=== PATIENT | male | born 1980 | race Caucasian/White ===

== ENCOUNTER 2020-03-24 06:38 | Day surgery (SDC) | payer BC ==
[~2020-03-24 06:38] MED LIST: Lactated Ringers 1,000 ML IV SCH; Sodium Chloride 0.9% 10 ML SDV IV PRN; Sodium Chloride 0.9% 10 ML Syringe FLUSH PRN; Sodium Chloride 0.9% 2.5 ML Syringe FLUSH PRN; ceFAZolin 2 GM in Premix Bag 1 BAG IV ONE
[2020-03-24] MEDS ORDERED: fentaNYL 250 MCG/5 ML SDV ONE (06:53)
[2020-03-24] MEDS ORDERED: Midazolam 1 MG/ML 2 ML SDV ONE (06:53)
[2020-03-24] MEDS ORDERED: Propofol 200 MG/20 ML SDV ONE (06:53)
[2020-03-24] MEDS ORDERED: Dexamethasone 4 MG/ML 5 ML MDV ONE (06:55)
[2020-03-24] MEDS ORDERED: Ondansetron 4 MG/2 ML SDV ONE (06:55)
[2020-03-24] MEDS ORDERED: ceFAZolin/Dextrose,Iso-Osmotic 2 GM/50 ML Duplex Bag IV ONE (07:01)
[2020-03-24] MEDS ORDERED: Bupivacaine 0.5% 30 ML SDV ONE (07:05)
--- NOTE | 2020-03-24 07:07 | PCM.PREANE ---
Preanesthetic Assessment - Anesthesia/Transfusion/Family Hx Anesthesia History: Prior Anesthesia Without Reaction Family History of Anesthesia Reaction: No Transfusion History: No Prior Transfusion(s) - Review of Systems General: No Symptoms Pulmonary: No Symptoms Cardiovascular: No Symptoms Gastrointestinal: No Symptoms Neurological: No Symptoms Other: Reports: None - Physical Assessment NPO Status Date: 03/23/20 Height: 5 ft 11 in Weight: 95.254 kg ASA Class: 1 Mental Status: Alert & Oriented x3 Airway Class: Mallampati = 2 Dentition: Reports: Normal Dentition ROM/Head Extension: Full Lungs: Clear to Auscultation, Normal Respiratory Effort Cardiovascular: Regular Rate, Regular Rhythm - Allergies Allergies/Adverse Reactions: Allergies Allergy/AdvReac Type Severity Reaction Status Date / Time No Known Allergies Allergy Verified 03/18/20 09:56 - Acknowledgements Anesthesia Type Planned: General Anesthesia Pt an Appropriate Candidate for the Planned Anesthesia: Yes Alternatives and Risks of Anesthesia Discussed w Pt/Guardian: Yes Pt/Guardian Understands and Agrees with Anesthesia Plan: Yes PreAnesthesia Questionnaire HEENT History: Reports: None Cardiovascular History: Reports: None Respiratory History: Reports: None Gastrointestinal History: Reports: None Genitourinary History: Reports: None Musculoskeletal History: Reports: Other (See Below) Other Musculoskeletal History: occasional back pain Neurological History: Reports: None Psychiatric History: Reports: None Endocrine/Metabolic History: Reports: None Hematologic History: Reports: None Immunologic History: Reports: None Oncologic (Cancer) History: Reports: None Dermatologic History: Reports: None - Infectious Disease History Infectious Disease History: Reports: Chicken Pox Other Infectious Disease History: as a child - Past Surgical History Head Surgeries/Procedures: Reports: None HEENT Surgical History: Reports: None Cardiovascular Surgical History: Reports: None Respiratory Surgical History: Reports: None GI Surgical History: Reports: None Other Female Surgeries/Procedures: varicocele repair Male Surgical History: Reports: Other (See Below) Endocrine Surgical History: Reports: None Neurological Surgical History: Reports: None Musculoskeletal Surgical History: Reports: Arthroscopic Knee, Other (See Below) Other Musculoskeletal Surgeries/Procedures:: flower knee surgeries, 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 Oncologic Surgical History: Reports: None Dermatological Surgical History: Reports: None - SUBSTANCE USE Tobacco Use Status *Q: Never Tobacco User - HOME MEDS Home Medications: Home Meds Turmeric Root Extract [Turmeric] 3 tab PO DAILY 09/18/19 [History] - CURRENT (IN HOUSE) MEDS Current Meds: Current Medications Lactated Ringer's (Ringers, Lactated) 1,000 mls @ 100 mls/hr IV ASDIRECTED CALEB Sodium Chloride (Saline Flush) 10 ml FLUSH ASDIRECTED PRN PRN Reason: Keep Vein Open Sodium Chloride (Saline Flush) 2.5 ml FLUSH ASDIRECTED PRN PRN Reason: Keep Vein Open Sodium Chloride (Normal Saline) 10 ml IV ASDIRECTED PRN PRN Reason: IV Use Discontinued Medications Cefazolin Sodium/Dextrose (Ancef) Confirm Administered Dose 2 gm IV .STK-MED ONE Stop: 03/24/20 07:02 Dexamethasone (Dexamethasone) Confirm Administered Dose 20 mg .ROUTE .STK-MED ONE Stop: 03/24/20 06:56 Fentanyl (Sublimaze) Confirm Administered Dose 250 mcg .ROUTE .STK-MED ONE Stop: 03/24/20 06:54 Cefazolin Sodium/Dextrose 2 gm (/ Premix) 50 mls @ 100 mls/hr IV ONCALL ONE Stop: 03/24/20 00:30 Lidocaine HCl (Xylocaine-Mpf 1%) Confirm Administered Dose 5 ml .ROUTE .STK-MED ONE Stop: 03/24/20 06:56 Midazolam HCl (Versed 1 Mg/Ml) Confirm Administered Dose 2 mg .ROUTE .STK-MED ONE Stop: 03/24/20 06:54 Ondansetron HCl (Zofran) Confirm Administered Dose 4 mg .ROUTE .STK-MED ONE Stop: 03/24/20 06:56 Propofol (Diprivan 20 Ml) Confirm Administered Dose 200 mg .ROUTE .STK-MED ONE Stop: 03/24/20 06:54
[2020-03-24] MEDS ORDERED: Glycopyrrolate 0.2 MG/ML SDV ONE (08:34)
[2020-03-24] MEDS ORDERED: fentaNYL 100 MCG/2 ML SDV IVPUSH PRN (08:39)
[2020-03-24] MEDS ORDERED: Acetaminophen 1,000 MG in Premix Bag 1 BAG IV ONE (10:47)
[2020-03-24] MEDS ORDERED: Ketorolac 30 MG/ML SDV IVPUSH ONE (10:47)
--- NOTE | 2020-03-24 11:06 | OR ---
SURGEON: Camila Patten M.D. DATE OF PROCEDURE: 03/24/2020 PREOPERATIVE DIAGNOSIS: Left inguinal hernia. POSTOPERATIVE DIAGNOSIS: Left inguinal hernia. OPERATION PERFORMED: Left inguinal hernia repair. DESCRIPTION OF OPERATION: The patient was given general anesthesia. He was placed in the supine position. External genital area and lower abdomen were all prepped and draped with sterile drapes. A left groin incision was made over the previous scar in the left groin. Dissection was carried out until the external oblique aponeurosis was identified and cut. Cord structures were identified, and the hernia sac was also identified and dissected free from surrounding attachments that was transfixed closer to the neck with 2-0 silk suture. The defect in the transversalis fascia was repaired with 3-0 silk interrupted sutures. The conjoined tendon was identified, and a relaxing incision was made, and that was pulled down and sutured to the base of the inguinal ligament to form the repair. With that done, the wounds were irrigated. The external oblique aponeurosis was then put back together using 3-0 silk interrupted sutures. Subcutaneous tissue was reapproximated using 3-0 chromic. Skin was closed with subcuticular nylon. Estimated blood loss was minimal, under 10 mL. The patient tolerated the procedure well and was moved to recovery room in good condition. PERNELL / JESÚS /[id number]
[2020-03-24] MEDS ORDERED: Haloperidol Lactate 5 MG/ML SDV ONE (11:09)
[2020-03-24] MEDS ORDERED: Haloperidol Lactate 5 MG/ML SDV IM ONE (11:10)
[2020-03-24] MEDS ORDERED: oxyCODONE 5 MG Tab PO ONE (12:11)
--- NOTE | 2020-03-24 13:12 | PCM48HPAN ---
Post Anesthesia Note - EVALUATION WITHIN 48HRS OF ANESTHETIC Vital Signs in Normal Range: Yes Patient Participated in Evaluation: Yes Respiratory Function Stable: Yes Airway Patent: Yes Cardiovascular Function Stable: Yes Hydration Status Stable: Yes Pain Control Satisfactory: Yes Nausea and Vomiting Control Satisfactory: Yes Mental Status Recovered: Yes Vital Signs: Last Vital Signs Temp 97.0 F 03/24/20 10:40 Pulse 62 03/24/20 12:15 Resp 15 03/24/20 12:15 BP 117/63 03/24/20 12:15 Pulse Ox 93 L 03/24/20 12:15
--- NOTE | 2020-03-24 13:12 | PCM.POSTAN ---
POST ANESTHESIA ASSESSMENT - MENTAL STATUS Mental Status: Alert, Oriented - VITAL SIGNS Vital Signs: Last Vital Signs Temp 97.0 F 03/24/20 10:40 Pulse 62 03/24/20 12:15 Resp 15 03/24/20 12:15 BP 117/63 03/24/20 12:15 Pulse Ox 93 L 03/24/20 12:15 - RESPIRATORY Respiratory Status: Respiratory Rate WNL, Airway Patent, O2 Saturation Stable - CARDIOVASCULAR CV Status: Pulse Rate WNL, Blood Pressure Stable - GASTROINTESTINAL GI Status: No Symptoms - POST OP HYDRATION Hydration Status: Adequate & Stable
== END 2020-03-24 12:50 | disposition home or self-care (01) ==
LOC: MW.SDS 06:38
PROVIDERS: ATTEND Urology
DX: K40.90 Unilateral inguinal hernia, without obstruction or gangrene, not specified as recurrent (principal); M47.816 Spondylosis without myelopathy or radiculopathy, lumbar region; M43.16 Spondylolisthesis, lumbar region; D17.6 Benign lipomatous neoplasm of spermatic cord; Z79.899 Other long term (current) drug therapy
CPT/HCPCS: 49505; A9270; J0131; J0690; J1100; J1630; J1885; J2001; J2250; J2405; J2704; J3010; J3490; J7120; 00830; 88302; 88304

== ENCOUNTER 2024-02-09 18:38 | Emergency (ER) | payer BC ==
[2024-02-09] MEDS: Lidocaine 1% 10 ML MDV INJECT ONE (19:45)
[2024-02-09] MEDS: Diphtheria,Pertussis(Acell),Tetanus Vaccine 0.5 ML Syringe IM ONE (19:46)
== END 2024-02-09 20:27 | disposition home or self-care (01) ==
LOC: MW.ED 18:38
DX: S61.215A Laceration without foreign body of left ring finger without damage to nail, initial encounter (principal); Z23 Encounter for immunization; W26.0XXA Contact with knife, initial encounter
CPT/HCPCS: 12002; 90471; 90715; 99282-25; 99283; J3490